=== PATIENT | male | born 2000 | race American Indian/Alaskan Native ===

== ENCOUNTER 2021-05-01 12:12 | Outpatient (CLI) | payer OTHER ==
--- NOTE | 2021-05-01 13:39 | XRay Report ---
CHEST 2 VIEWS INDICATION: SEIZURES,HEART CONDITION. COMPARISON: None FINDINGS: Support devices: None. Heart: Within normal limits. Lungs/pleura: No acute air space or interstitial disease. No pneumothorax. Additional findings: None. IMPRESSION: Normal chest x-ray. Signer Name: Gavino Graham Jr, MD Signed: 05/01/2021 1:35 PM Workstation Name: [id number]
== END 2021-05-01 12:13 | disposition home or self-care (01) ==
LOC: XRAY 12:12
PROVIDERS: ATTEND Internal Medicine
DX: R56.9 Unspecified convulsions (principal); I51.9 Heart disease, unspecified
CPT/HCPCS: 71046